=== PATIENT | male | born 1960 | race Caucasian/White ===

== ENCOUNTER 2024-12-01 00:01 | Emergency (ER) | payer MEDICARE ==
[~2024-12-01] VITALS: Ht 175.3 cm; Wt 81.8 kg
--- NOTE | 2024-12-01 00:39 | Physician Documentation ---
History of Present Illness ~ Chief Complaint: Ingestion Error Stated Complaint: INGESTION ERROR Time Seen by MD: 00:31 Source: patient Mode of Arrival: POV Exam Limitations: no limitations HPI Patient with a history of lymphoma who takes Calquence 100 mg twice daily. In because he accidentally took a 2nd Calquence dose this evening a couple hours after his normal dosing it and he thought it goes his high blood pressure pill. Otherwise feels fine. Medication Reconciliation Allergies: Coded Allergies: meperidine (Verified Allergy, Intermediate, HYPOTENSION, 12/01/24) Past Medical History Past Medical History: Lymphoma Review of Systems All Other Systems at this time: Reviewed and Negative Physical Exam Vital Signs: Temperature: 97.9, Source: Oral, Heart Rate: 80, Respiratory Rate: 16, BP: 161/91, Pulse Oximetry: 98, Weight: 81.820 Oxygen Flow Rate: 0 Physical Exam General: Alert and oriented x4, well-appearing, well-nourished, no acute distress HEENT: Normocephalic, atraumatic, no visible or palpable masses or depression, Heart: Regular rate Lungs: Clear normal work of breathing Extremities: Full range of motion, Musculoskeletal: Normal gait, normal tone Neurologic: Cranial nerves 2-12 are intact, Psychiatric: Alert and oriented x4, judgment and insight normal, normal mood and affect Progress Results/Orders Results/Orders Vital Signs 12/01/24 12/01/24 00:15 01:24 Temp 97.9 97.9 Pulse 80 70 Resp 16 16 B/P (MAP) 161/91 128/80 Pulse Ox 98 97 O2 Flow Rate 0 Departure Disposition: 01 HOME / SELF CARE / HOMELESS Impression: Primary Impression: Medication administered in error Qualified Codes: T50.901A - Poisoning by unspecified drugs, medicaments and biological substances, accidental (unintentional), initial encounter Additional Impression Text Well-appearing patient. Discussed case with poison control who felt he could look out for vomiting or diarrhea. No workup recommended. Patient currently has no symptoms. Recommend skipped a.m. dose and resume tomorrow night's dose. He can call his oncologist tomorrow also to confirm this. Discharged in good condition to return here if new or worsening symptoms prior to follow-up. Condition: Stable Additional Instructions: Skip your morning dose of your medication. Continue your high blood pressure medication as directed. Follow-up with your oncologist as directed. Return here if any new or worsening symptoms or concerns. Referrals: NO PRIMARY CARE PROVIDER (PCP) Education Educated: Patient Educated regarding: diagnosis, treatment, prognosis, need for follow up Signature Scribe Signature: No scribe Attestation: No scribe SERGEY BARNARD MD Dec 01, 2024 00:39
[2024-12-01 01:24] VITALS: BP 128/80; PULSE 70; RESP 16; TEMP 97.9; O2SAT 97
== END 2024-12-01 01:27 | disposition home or self-care (01) ==
LOC: ER 00:03
DX: T50.901A Poisoning by unspecified drugs, medicaments and biological substances, accidental (unintentional), initial encounter (principal); Z88.5 Allergy status to narcotic agent; Y92.89 Other specified places as the place of occurrence of the external cause
CPT/HCPCS: 99281